=== PATIENT | male | born 1980 | race Two or more races ===

== ENCOUNTER 2024-12-30 22:32 | Emergency (ER) | payer OTHER ==
[~2024-12-30] VITALS: Ht 170.2 cm; Wt 79.8 kg
[2024-12-31 03:16] VITALS: BP 149/85; TEMP 98.6; O2SAT 100
[2024-12-31] MEDS ORDERED: FAMO20TA8 PO (03:44)
[2024-12-31] MEDS ORDERED: MAG HYDROX/AL HYDROX/SIMETH 30 ML UDC ONE (03:49)
[2024-12-31] MEDS ORDERED: FAMOTIDINE (20 MG) 20 MG TABLET ONE (03:49)
[2024-12-31] MEDS: MAG HYDROX/AL HYDROX/SIMETH 30 ML UDC PO ONE (03:53)
[2024-12-31] MEDS: FAMOTIDINE (20 MG) 20 MG TABLET PO ONE (03:53)
== END 2024-12-31 03:54 | disposition home or self-care (01) ==
LOC: ER 22:37
DX: R12 Heartburn (principal); I11.9 Hypertensive heart disease without heart failure; E11.9 Type 2 diabetes mellitus without complications; E78.5 Hyperlipidemia, unspecified; K21.9 Gastro-esophageal reflux disease without esophagitis